=== PATIENT | female | born 1965 | race Caucasian/White ===

== ENCOUNTER 2017-01-04 12:41 | Day surgery (SDC) | payer OTHER ==
[2016-12-30 16:11] LABS: HEMOGLOBIN 11.3 g/dL (12.0-16.0)
--- NOTE | ~2017-01-04 | OP ---
Record Of Operation [facility] [address] [place]. [address] NAME: CHIKIS THOMASON : 63 STATUS : [facility]#: [id number] AGE: 51 ADM/REG DATE : 01/04/17 MR#: [id number] REPORT SERV DATE: 01/04/17 DICTATED BY: LEOBARDO SINHA DATE: 01/04/17 REPORT STATUS : Draft TRANSCRIBED BY: MODL DATE: 01/04/17 DATE OF PROCEDURE: 01/04/2017 PREOPERATIVE DIAGNOSES: 1. Left single-sided deafness. 2. History of previous BAHA surgery with standard abutment. POSTOPERATIVE DIAGNOSES: 1. Left single-sided deafness. 2. History of previous BAHA surgery with standard abutment. PROCEDURE: Replacement BAHA bone-anchored hearing aid. INDICATIONS: Chikis Thomason is a 51-year-old female, who had placement of a BAHA with the standard transdermal abutment post several years ago. The device works very well, but it has been quite painful, and multiple attempts at cleaning and application of antibiotics and steroids have not sufficed to calm down that skin edge. I counseled her about the risks, benefits, and alternatives of this procedure. The risks include, but are not limited to pain, bleeding, infection, and scarring. I quoted her a 1% risk for postoperative infection. She voiced an understanding of those risks and signed a consent form. DESCRIPTION OF PROCEDURE: Chikis was brought to the operating room and positioned on the table in supine manner. General endotracheal anesthesia was induced. The table was rotated 180 degrees. The patient was prepped and draped in the usual fashion. We used a template to emily the skin for the placement of the new BAHA screw, and I shaved a little bit of hair and then we prepped and draped the patient in the usual fashion. The incision was performed with 15 blade and we used the unipolar cautery for control of hemostasis. Once we had the bleeding controlled, the flap was elevated at the subperiosteal level. We identified the previous BAHA post, I put a needle through the existing skin marking and I came down just a little bit posterior to the BAHA, so we placed the new implant screw just a little bit behind and a little bit superior to the old one. The wound was thoroughly irrigated several times. We drilled initially with the plastic guard in place, and then thoroughly irrigated the drill army helicopter pilot hole and then took out the plastic guard and drilled that down to the depths. Bone chips and bone dust were irrigated out and the bottom of the implant screw hole seen very firm and not to be close to the inner table at all. We then did the countersink drilling without irrigation initially and then actually got that countersunk nicely almost 360 degrees around the periphery of the hole. Following this, this was thoroughly irrigated one more time, and we placed the implant screw set at 32 and that seemed to be nice and flush with the outer table of bone. This was thoroughly irrigated one more time and we suctioned out the screw hole and then placed the magnetic coupling device with the air pointed up into that and torqued that by hand to 25. Following this, the field was thoroughly irrigated with saline one more time and then we used 4-0 Vicryl in an interrupted fashion to close the skin and 5-0 plain on the skin in a running locking suture pattern. Bacitracin was placed and then the Fannin dressing as well. The patient was returned to anesthesia control. She was extubated in the operating room and moved to the recovery room in good condition. Record Of Operation [address] [place]. [address] NAME: CHIKIS THOMASON : 63 STATUS : [facility] PAT#: [id number] AGE: 51 ADM/REG DATE : 01/04/17 MR#: [id number] REPORT SERV DATE: 01/04/17 DICTATED BY: LEOBARDO SINHA DATE: 01/04/17 REPORT STATUS : Draft TRANSCRIBED BY: ARASH DATE: 01/04/17 FINDINGS: 1. Estimated blood loss 20 mL. 2. Total fluids given about 800 mL of Ringer's lactate. 3. The existing implant screw was not infected. YUN/ARASH Leobardo Sinha M.D. / [id number] CC: Marcia Luque M.D.
[~2017-01-04 12:41] MED LIST: ENBREL50 MG/M1 SC; LEXAPRO10 PO; MULTIVITAMI1 PO; OTEZLA30 MG PO; PREM625 PO; VALTREX5 PO; WELLXL300 PO
== END 2017-01-04 19:00 | disposition home or self-care (01) ==
LOC: SDC 12:41
PROVIDERS: Otolaryngology
PROC: 0NW Head and Facial Bones, Revision (ICD-10-PCS; principal; 2017-01-04 14:00)
DX: Z45.3 Encounter for adjustment and management of implanted devices of the special senses (principal); H90.12 Conductive hearing loss, unilateral, left ear, with unrestricted hearing on the contralateral side; H70.12 Chronic mastoiditis, left ear; E53.8 Deficiency of other specified B group vitamins; G57.93 Unspecified mononeuropathy of bilateral lower limbs; K21.9 Gastro-esophageal reflux disease without esophagitis; Z98.890 Other specified postprocedural states; Z86.19 Personal history of other infectious and parasitic diseases; Z88.1 Allergy status to other antibiotic agents; Z88.2 Allergy status to sulfonamides; Z88.8 Allergy status to other drugs, medicaments and biological substances; Z79.818 Long term (current) use of other agents affecting estrogen receptors and estrogen levels; Z79.899 Other long term (current) drug therapy
CPT/HCPCS: 85014; 85018; 93005; A9270-GY; J0690; J2250; J2405; J2710; J3010; L8614; L8690